=== PATIENT | female | born 1995 | race Caucasian/White ===

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

== ENCOUNTER 2017-01-20 22:44 | Emergency (ER) | payer BC, OTHER ==
[~2017-01-20] VITALS: Ht 162.6 cm; Wt 60.0 kg
[~2017-01-20 22:44] MED LIST: MONT1TAB3 PO
[2017-01-20 22:47] VITALS: BP 116/72; TEMP 36.3; Ht 162.6 cm; Wt 60.0 kg
--- NOTE | 2017-01-20 23:10 | EMERGENCY ROOM VISIT NOTE ---
ED Visit Note First contact with patient: 22:51 Chief Complaint: Left foot Injury History of Present Illness: This patient is a 21-year-old female who presents to the Emergency Department for evaluation of their left foot injury. Patient states that they injured the left foot while walking up some steps, states she lost her footing and hit the foot on the edge of the stair, she thinks she may have also twisted the foot during the injury. They report moderate swelling and pain over the lateral aspect of the foot. Pain is worse with ambulation. They deny any numbness or tingling into the distal extremity including the toes. They deny any pain extending into the ankle or leg. Patient reports no previous fractures of the affected ankle. Patient rates current discomfort as throbbing and 7/10. Patient has tried ibuprofen for their pain immediately after injury with some relief of their symptoms. Patient denies any associated injuries. Medications: Reviewed in chart Allergies: NKA PMH: No significant past medical or surgical history SHx: [employer] student. [place]. Denies tobacco use. ROS: All pertinent positive and negative review of systems are appropriately documented in the History of Present Illness. Physical Exam: VITAL SIGNS - Vital signs and nursing notes were reviewed. GENERAL -pleasant and cooperative, no acute distress, but in noticeable discomfort throughout the exam. MUSCULOSKELETAL -The left foot is noted to have mild soft tissue swelling, ecchymosis, and tender to palpation over the dorsal lateral aspect of the left foot. Positive tenderness over the proximal fifth metatarsal. There is no tenderness to palpation of the medial or lateral malleolus. There is no pain with range of motion of the ankle. No tenderness extending into the ankle or up the leg. Mildly diminished strength appreciated secondary to patient discomfort. NEUROLOGIC/VASCULAR - Neurovascularly intact distally with + 2 dorsalis pedis pulses palpated bilaterally. Normal sensation to light and sharp touch appreciated distally. Imaging: My read of the three-view x-ray of the left foot reveals no acute fractures or dislocations; mild lateral soft tissue swelling noted. ED Course: Patient was seen and evaluated by myself. Differential diagnosis includes contusion, hematoma, sprain/strain, fracture, dislocation, among others. Patient was provided an ice pack for comfort. Patient was offered Tylenol for their complaint of pain, she declined this stating she had just taken ibuprofen. X-rays were obtained of the affected foot. Imaging results as above. Images were discussed and reviewed with the patient who acknowledges understanding. Patient was provided an Margarito wrap to the foot for comfort. The patient was offered crutches, she states she has crutches at home and will use these. Patient educated on worrisome symptoms for return visit to the emergency department. Patient with follow-up with their primary care provided in 4-5 days if their symptoms are not improving. Patient discharged to home in good condition. The patient was discussed with Dr. Brody, who reviewed the patient's imaging with me and agrees with my assessment and plan. Current/Historical Medications Scheduled Montelukast Sodium (Singulair), 10 MG PO DAILY Allergies Coded Allergies: No Known Allergies (Unverified , 12/25/16) Vital Signs Date Time Temp Pulse Resp B/P (MAP) Pulse Ox O2 Delivery O2 Flow Rate FiO2 01/21/17 00:48 92 18 95 01/20/17 22:47 36.3 97 20 116/72 97 Room Air Departure Information Impression Primary Impression: Contusion of left foot, initial encounter Dispostion Home / Self-Care Condition GOOD Referrals No Doctor, Assigned (PCP) Sean Baez D.O. Patient Instructions ED Contusion Foot, [facility] Additional Instructions You have been treated in the Emergency Department for your left foot contusion. For pain control, you can use the following [id number] medicines (if >12 yo): - Regular strength (325mg/tab) Tylenol (acetaminophen) 2 tabs every 4-6 hours as needed. Do not exceed 10 tablets in a 24 hour period. Avoid taking more than 3000 mg of Tylenol per day. This includes any other sources of acetaminophen you may take on a regular basis. - Regular strength (200 mg/tab) Advil (ibuprofen) 1-2 tabs every 4-6 hours as needed. Do not exceed a dose of 2400 mg per day. If this is a recent injury (<24 hrs), ice can be applied to the area of pain for the first 3 days to help decrease pain and inflammation. Please use the crutches and wear the MARGARITO wrap on your foot until you are able to put full weight on the foot without pain. Follow-up with your primary care provider or Orthopedic Surgeon in 4-5 days if your symptoms are not improving despite the treatment plan outlined above. Return to the Emergency Department if you develop severe worsening pain or new onset of numbness or tingling of the foot.
[2017-01-21 00:48] VITALS: PULSE 92; O2SAT 95
--- NOTE | 2017-01-21 05:58 | DIAGNOSTIC IMAGING REPORT ---
L FOOT MIN 3 VIEWS ROUTINE CLINICAL HISTORY: 21 years-old Female presenting with eval fracture, tripped on a step and twisted left foot and ankle. TECHNIQUE: Frontal, oblique, and lateral views of the left foot were obtained. COMPARISON: None. FINDINGS: No acute fracture or malalignment. No degenerative change. No radiographic soft tissue abnormality. IMPRESSION: No acute osseous injury of the left foot. Electronically signed by: Henry Fernández M.D. 01/21/2017 5:57 AM Dictated Date/Time: 01/21/2017 5:56 AM
== END 2017-01-21 00:49 | disposition home or self-care (01) ==
LOC: C.EDB 22:45
DX: S90.32XA Contusion of left foot, initial encounter (principal); W22.8XXA Striking against or struck by other objects, initial encounter

== ENCOUNTER 2017-01-23 15:58 | Emergency (ER) | payer BC, OTHER ==
[~2017-01-23] VITALS: Ht 162.6 cm; Wt 68.9 kg
[2017-01-23 16:08] VITALS: BP 123/75; Ht 162.6 cm; Wt 68.9 kg
[2017-01-23 16:50] VITALS: PULSE 65; TEMP 36.7; O2SAT 99
--- NOTE | 2017-01-24 00:55 | EMERGENCY ROOM VISIT NOTE ---
ED Visit Note First contact with patient: 16:14 Chief Complaint: Right foot pain. History of Present Illness: Ms. Whyte is a 21-year-old white female who ambulates into the ED with crutches accompanied by female friend complaining of right foot pain. Patient reports she was seen in the emergency department, 3 days ago, when she injured her foot. She reports during that visit x-rays were performed and there were no fractures. She was placed in an Margarito bandage and nonweightbearing crutches. Patient reports since being discharged she has been having difficulty getting around to her classes on crutches and requests a fracture boot. She reports she has been having improving pain and swelling of her foot. She denies any numbness and tingling throughout the foot. She reports she has not reinjured the foot. Currently she is complaining of pain over the dorsal aspect of the foot in the area of her contusion. She rates her discomfort 6/10. The pain is nonradiating. The pain worsens with palpation and plantar flexion. She has not identified any alleviating factors related to the pain. She has been using [id number] medications without relief of her discomfort. She denies any associated symptoms. Review of Systems: As noted above in history of present illness. Past Medical History: Patient denies. Current Medications: Singulair. Allergies to Medications: Patient denies. Social History: Patient is currently University student; she feels safe in her home environment; she denies tobacco use and admits to alcohol use. Physical Examination: Vital Signs: Date Time Temp Pulse Resp B/P (MAP) Pulse Ox O2 Delivery O2 Flow Rate FiO2 01/23/17 16:50 36.7 65 16 99 Room Air 01/23/17 16:08 36.7 78 20 123/75 99 Room Air GENERAL: 21-year-old female in no acute distress, nontoxic-appearing, afebrile and hemodynamically stable. NEUROLOGICAL: Awake, alert and oriented to person, place and time. Answering questions appropriately and following commands. SKIN: Warm, dry and pink. Right Foot: Over the dorsal aspect of the foot patient has a contusion that extends over most of the tarsals but not over the metatarsals or into the toes. No open soft tissue injuries were noted. RIGHT FOOT: Soft tissue injury as noted above. No gross bony deformity. Mild to moderate tenderness throughout her contusion without bony deformity or crepitus. She has full range of motion in plantar flexion, dorsiflexion, inversion and eversion of the ankle and flexion and extension of all MTP, PIP and DIP joints. Throughout the foot the skin was warm and pink and capillary refill is brisk. She was able to distinguish light sensations through all dermatomes. ED Course: Patient is assessed as noted above. Patient's medication list was reviewed. Patient was placed in a fracture boot. Patient was educated about today's findings and instructed on her treatment plan ; she verbalized understanding and agreement with this plan. Clinical Impression: Right foot contusion. Disposition: Patient discharged home in stable condition accompanied by female friends; prior to departure she was reassessed and subjectively reported she was feeling better and rated her discomfort 2/10. Plan: Patient was encouraged to continue her current treatment plan from her first visit. Patient was encouraged to use the boot for ambulation but if she continued to have pain with walking I suggested that she continue to use the crutches also. Patient was encouraged to follow-up at [facility] for recheck if no better in 4-5 days. Patient was encouraged return ED for worsening/uncontrolled pain, worsening swelling, foot weakness/numbness/tingling or any new/concerning symptoms.
== END 2017-01-23 16:50 | disposition home or self-care (01) ==
LOC: C.EDB 15:59 → C.EDD 16:50
DX: S90.31XA Contusion of right foot, initial encounter (principal); X58.XXXA Exposure to other specified factors, initial encounter